=== PATIENT | female | born 1990 | race Two or more races ===

== ENCOUNTER → 2018-05-08 | Day surgery (SDC) | payer OTHER ==
[~2018-05-08] MED LIST: BACTRIM DS TAB1 EACH PO; NEURONTIN300 MG PO; PERCOCET 5-3251 EACH PO; RECTICARE30 GM TOP
== END | disposition home or self-care (01) ==
LOC: ADM 05-01 09:00 → CIR.AMB 05:50
DX: K64.4 Residual hemorrhoidal skin tags (principal); N81.6 Rectocele